=== PATIENT | male | born 1970 | race Hispanic/Latino ===

== ENCOUNTER 2017-06-20 08:51 | Inpatient (IN) | payer OTHER ==
--- NOTE | 2017-06-20 09:36 | ED PDOC ---
Arrival/HPI - General Historian: Patient, EMS <Swapna Galeana - Last Filed: 06/20/17 18:01> <Sherri Zaldivar - Last Filed: 06/20/17 18:54> <Lico Tyler - Last Filed: 06/21/17 04:22> - General Chief Complaint: Alcohol Ingestion Time Seen by Provider: 06/20/17 09:09 - History of Present Illness Narrative History of Present Illness (Text): 06/20/17 09:32 pt brought in by ambulance after being found in an alleyway with a bottle of alcohol at his side. pt alert, but intoxicated. smell of alcohol on breath. admits to drinking alcohol. denies any complaints. (Swapna Galeana) Past Medical History - Provider Review Nursing Documentation Reviewed: Yes - Travel History Have you recently traveled outside [place] w/in the past 3 mons?: No - Tetanus Immunization Tetanus Immunization: Unknown - Psychiatric Hx Substance Use: No (pt denies) <Swapna Galeana - Last Filed: 06/20/17 18:01> Family/Social History - Physician Review Nursing Documentation Reviewed: Yes Family/Social History: Unknown Family HX Smoking Status: Unknown If Ever Smoked Hx Alcohol Use: Yes Hx Substance Use: No (pt denies) <Swapna Galeana - Last Filed: 06/20/17 18:01> Allergies/Home Meds <Swapna Galeana - Last Filed: 06/20/17 18:01> <Sherri Zaldivar - Last Filed: 06/20/17 18:54> <Lico Tyler - Last Filed: 06/21/17 04:22> Allergies/Adverse Reactions: Allergies No Known Allergies Allergy (Verified 02/06/15 21:09) Home Medications: Home Meds Medication Instructions Recorded Confirmed Unobtainable 06/20/17 06/20/17 Review of Systems - Review of Systems Systems not reviewed;Unavailable: Intoxicated Respiratory: absent: SOB Cardiovascular: absent: Chest Pain Gastrointestinal: absent: Abdominal Pain Musculoskeletal: absent: Arthralgias Neurological: absent: Headache <Swapna Galeana - Last Filed: 06/20/17 18:01> Physical Exam Vital Signs Reviewed: Yes Temperature: Afebrile Blood Pressure: Hypertensive Pulse: Tachycardic Respiratory Rate: Normal Appearance: Positive for: Well-Appearing, Non-Toxic, Comfortable Pain Distress: None Mental Status: Positive for: other (alert, intoxicated) Finger Stick Blood Glucose: 101 - Systems Exam Head: Present: Atraumatic Pupils: Present: PERRL Conjunctiva: Present: Injected (bilateral conjunctival injection) Mouth: Present: Moist Mucous Membranes Neck: Present: Normal Range of Motion Respiratory/Chest: Present: Clear to Auscultation Cardiovascular: Present: Tachycardic Abdomen: No: Tenderness Back: Present: Normal Inspection Upper Extremity: Present: Normal Inspection, Normal ROM Lower Extremity: Present: Normal ROM, Other (abrasion, left knee). No: Tenderness Skin: Present: Warm, Dry Psychiatric: Present: Alert, Intoxicated <Swapna Galeana - Last Filed: 06/20/17 18:01> Medical Decision Making <Swapna Galeana - Last Filed: 06/20/17 18:01> <Sherri Zaldivar - Last Filed: 06/20/17 18:54> <Lico Tyler - Last Filed: 06/21/17 04:22> ED Course and Treatment: 06/20/17 09:34 male hudson found in alleyway with bottle of alcohol at his side. admits to drinking alcohol. alert but intoxicated. will observe patient for sobriety. Patient is nontoxic well-appearing in no distress vital signs are stable. CBC WNL CMP WNL Tylenol WNL Salicylate WNL Alcohol level 527 Urine drug screen pending UA; pending cxr: wnl ekg: sinus tachycardia at 102 b/m no st elevations. Head CT:FINDINGS: HEMORRHAGE: No intracranial hemorrhage. BRAIN: No mass effect or edema. No atrophy or chronic microvascular ischemic changes. VENTRICLES: Unremarkable. No hydrocephalus. CALVARIUM: Unremarkable. PARANASAL SINUSES: Unremarkable as visualized. No significant inflammatory changes. MASTOID AIR CELLS: There is some bony sclerosis and opacification of air cells in the inferior right mastoid consistent with mastoiditis OTHER FINDINGS: None. IMPRESSION: No acute findings 06/20/17 18:02 case signed out to dr. zaldivar; pending sobriety impression; alcohol intoxication (Swapna Galeana) - Lab Interpretations Lab Results: 06/20/17 10:00 06/20/17 10:00 Lab Results 06/20/17 10:00: WBC 5.6, RBC 5.71, Hgb 17.4, Hct 46.8, MCV 82.0, MCH 30.5, MCHC 37.2 H, RDW 13.2, Plt Count 95 L, MPV 9.0, Gran % 46.4 L, Lymph % (Auto) 48.4 H , [place] % (Auto) 4.8, Eos % (Auto) 0.2 L, Baso % (Auto) 0.2, Gran # 2.60, Lymph # 2.7, [place] # 0.3, Eos # 0.0, Baso # 0.01 06/20/17 10:00: Alcohol, Quantitative 527 H* 06/20/17 10:00: Salicylates < 1 L, Acetaminophen < 10.0 L 06/20/17 10:00: Sodium 144, Potassium 4.1, Chloride 97 L, Carbon Dioxide 23, Anion Gap 28 H, BUN 15, Creatinine 0.6, Est GFR ( Amer) > 60, Est GFR ( Non-Af Amer) > 60, Random Glucose 99, Calcium 8.3 L, Total Bilirubin 1.1, AST 551 H, ALT 441 H, Alkaline Phosphatase 73, Total Protein 7.6, Albumin 4.8, Globulin 2.8, Albumin/Globulin Ratio 1.7 06/20/17 09:08: POC Glucose (mg/dL) 101 - RAD Interpretation Radiology Orders: 06/20/17 09:10 HEAD W/O CONTRAST [CT] Stat 06/20/17 09:36 CHEST ONE VIEW [RAD] Stat - Medication Orders Current Medication Orders: Folic Acid 1 mg/ Thiamine HCl 100 mg/ Multivitamins/Vitamin C 10 ml/ Dextrose 1 ,011.2 mls @ 100 mls/hr IV .Q10H7M [facility] Calcium Gluconate 1,000 mg/ (Sodium Chloride) 110 mls @ 110 mls/hr IVPB ONCE ONE Stop: 06/21/17 05:03 Discontinued Medications Chlordiazepoxide (Librium) 25 mg PO STAT STA PRN Reason: Protocol Stop: 06/20/17 21:32 Last Admin: 06/20/17 21:45 Dose: 25 mg Chlordiazepoxide (Librium) 25 mg PO STAT STA PRN Reason: Protocol Stop: 06/21/17 02:54 Last Admin: 06/21/17 03:26 Dose: Lorazepam (Ativan) 2 mg IVP ONCE ONE PRN Reason: Protocol Stop: 06/21/17 03:17 Last Admin: 06/21/17 03:33 Dose: 2 mg ED OBSERVATION Date of observation admission: 06/20/17 Time of observation admission: 09:10 <Swapna Galeana - Last Filed: 06/20/17 18:01> <Sherri Zaldivar - Last Filed: 06/20/17 18:54> <Lico Tyler - Last Filed: 06/21/17 04:22> - Observation admission statement Patient is being placed in observation because:: alcohol intoxication (Swapna Galeana) - Goals of Observation Goals of observation are:: sobriety (Swapna Galeana) - Progress Note Progress Note: 06/20/17 11:15 pt sleeping in er; HR 89. no distress. 06/20/17 13:23 pt alert; no distress. stable vitals. resting comfortably. 06/20/17 15:27 pt sleeping in ER. no distress.stable vitals. 06/20/17 17:30 pt with stable vitals; no distress; drinking water in er. (Swapna Galeana) 06/20/17 18:29 Patient awake resting comfortably in his bed. 06/20/17 19:[address] Tyler to reevaluate when sober. (Sherri Zaldivar) 06/20/17 19:00 Case endorsed to me by Dr. Zaldivar, pending sobriety. 06/20/17 21:00 Pt resting comfortably, no new complaints. 06/20/17 23:00 Pt sleeping currently, in no acute distress. 06/21/17 01:00 Pt resting comfortably, no new complaints. 06/21/17 02:53 RN reports pt is now experiencing shaking. Will order Librium and banana bag. 06/21/17 03:17 Case discussed with medical planner educational fundraising director, who is aware and agrees with plan. Case discussed with Dr. Oglesby, who is aware and agrees with plan. Pt will be admitted to Telemetry observation for alcohol withdrawal under the hospitalist service. (Lico Tyler) Disposition/Present on Arrival - Present on Arrival Any Indicators Present on Arrival: No History of DVT/PE: No History of Uncontrolled Diabetes: No Urinary Catheter: No History of Decub. Ulcer: No History Surgical Site Infection Following: None <Swapna Galeana - Last Filed: 06/20/17 18:01> - Disposition Have Diagnosis and Disposition been Completed?: No Disposition Time: 19:00 <Sherri Zaldivar - Last Filed: 06/20/17 18:54> <Lico Tyler - Last Filed: 06/21/17 04:22> - Disposition Diagnosis: Alcohol abuse Patient Problems: Current Active Problems Problem Status Onset Alcohol abuse Acute Condition: FAIR
[2017-06-20 10:13] LABS: ADD MANUAL DIFF? NO
[2017-06-20 10:22] LABS: BASO # 0.01 K/mm3 (0.0-2.0); BASO % 0.2 % (0.0-3.0); EOS % 0.2 % (1.5-5.0); GRAN % 46.4 % (50.0-68.0); HEMATOCRIT 46.8 % (42.0-52.0); LYMPH # 2.7 (1.2-3.4); LYMPH % 48.4 % (22.0-35.0); MEAN CORPUSCULAR HEMOGLOBIN 30.5 pg (25.0-35.0); MEAN CORPUSCULAR HGB CONC 37.2 g/dl (31.0-37.0); MONO # 0.3 (0.1-0.6); MONO % 4.8 % (1.0-6.0); PLATELET COUNT 95 10^3/uL (120.0-450.0); RED CELL DISTRIBUTION WIDTH 13.2 % (11.5-14.5); WHITE BLOOD COUNT 5.6 10^3/ul (4.5-11.0)
[2017-06-20 10:33] LABS: ALB/GLOB RATIO 1.7 (1.1-1.8); ALKALINE PHOSPHATASE 73 U/L (38-133); ALT/SGPT 441 U/L (7-56); AST/SGOT 551 U/L (15-59); BILIRUBIN,TOTAL 1.1 mg/dL (0.2-1.3); BLOOD UREA NITROGEN 15 mg/dL (7-21); CALCIUM 8.3 mg/dL (8.4-10.5); CARBON DIOXIDE 23 mmol/L (21-33); CHLORIDE 97 mmol/L (98-107); GFR AFRICAN-AMERICAN > 60; GLUCOSE,RANDOM 99 mg/dL (70-110); POTASSIUM 4.1 mmol/L (3.6-5.0); SODIUM 144 mmol/L (132-148); TOTAL PROTEIN 7.6 g/dL (5.8-8.3)
--- NOTE | 2017-06-20 12:14 | CT ---
PROCEDURE: CT HEAD WITHOUT CONTRAST. HISTORY: AMS/etoh use COMPARISON: None available. TECHNIQUE: Axial computed tomography images were obtained through the head/brain without intravenous contrast. Radiation dose: Total exam DLP = 769 mGy-cm. This CT exam was performed using one or more of the following dose reduction techniques: Automated exposure control, adjustment of the mA and/or kV according to patient size, and/or use of iterative reconstruction technique. FINDINGS: HEMORRHAGE: No intracranial hemorrhage. BRAIN: No mass effect or edema. No atrophy or chronic microvascular ischemic changes. VENTRICLES: Unremarkable. No hydrocephalus. CALVARIUM: Unremarkable. PARANASAL SINUSES: Unremarkable as visualized. No significant inflammatory changes. MASTOID AIR CELLS: There is some bony sclerosis and opacification of air cells in the inferior right mastoid consistent with mastoiditis OTHER FINDINGS: None. IMPRESSION: No acute findings
--- NOTE | 2017-06-20 12:19 | RAD ---
PROCEDURE: CHEST RADIOGRAPH, 1 VIEW HISTORY: AMS COMPARISON: None available. FINDINGS: LUNGS: Clear. PLEURA: No pneumothorax or pleural fluid seen. CARDIOVASCULAR: Normal. OSSEOUS STRUCTURES: No significant abnormalities. VISUALIZED UPPER ABDOMEN: Normal. OTHER FINDINGS: None. IMPRESSION: No active disease.
--- NOTE | 2017-06-20 13:11 | CARD ---
APPROVED REPORT EKG Measurement Heart [id number] <Conclusion> Poor data quality, interpretation may be adversely affected Sinus tachycardia Otherwise normal ECG
[2017-06-21] MEDS ORDERED: Thiamine 100 mg/ml Inj IV ONE (03:34)
--- NOTE | 2017-06-21 04:01 | CP.PCM.HP ---
<Krishna White - Last Filed: 06/21/17 04:06> History of Present Illness - History of Present Illness History of Present Illness: CC: ETOH intoxication HPI: Patient is a 47 year old male with PMH significant for ETOH abuse who is brought to the ED via EMS for alcohol intoxication after being found in an alleyway with a bottle of alcohol at his side per ED documentation. Patient reports drinking for 7 days straight, consuming a mixture of vodka and beer every day. Patient reports having a long history of alcohol intoxication episodes requiring medical attention. Patient speech noted to be slightly slurred and smells of ETOH. Patient is alert to place, year, person. Patient denies auditory/visual hallucinations. Patient reports tremors and elevated heart rate. Denies chest pain, shob, abdominal pain, fever, chills, nausea, vomiting. 12 point ROS negative except for mentioned in HPI. PMH: ETOH abuse PSH: Jaw surgery FMH: Non-contributory SocHx: Tob: Denies, ETOH: Heavy drinking, ID: denies Meds: None Allergies: None PMD: None Present on Admission - Present on Admission Any Indicators Present on Admission: No History of DVT/PE: No History of Uncontrolled Diabetes: No Urinary Catheter: No Decubitus Ulcer Present: No Review of Systems - Review of Systems All systems: reviewed and no additional remarkable complaints except Review of Systems: as mentioned in HPI Past Patient History - Infectious Disease Hx of Infectious Diseases: None - Tetanus Immunizations Tetanus Immunization: Unknown - Past Medical History & Family History Past Medical History?: No - Past Social History Smoking Status: Never Smoked Alcohol: > 2 Drinks/Day Drugs: Denies - CARDIAC Hx Cardiac Disorders: No - PULMONARY Hx Respiratory Disorders: No - NEUROLOGICAL Hx Neurological Disorder: No - HEENT Hx HEENT Problems: No - RENAL Hx Chronic Kidney Disease: No - ENDOCRINE/METABOLIC Hx Endocrine Disorders: No - HEMATOLOGICAL/ONCOLOGICAL Hx Blood Disorders: No - INTEGUMENTARY Hx Dermatological Problems: No - MUSCULOSKELETAL/RHEUMATOLOGICAL Hx Falls: Yes - GASTROINTESTINAL Hx Gastrointestinal Disorders: No - GENITOURINARY/GYNECOLOGICAL Hx Genitourinary Disorders: No - PSYCHIATRIC Hx Substance Use: No (pt denies) - SURGICAL HISTORY Hx Surgeries: (unable to obtain) - ANESTHESIA Hx Anesthesia: No Hx Anesthesia Reactions: No Hx Malignant Hyperthermia: No Meds Allergies/Adverse Reactions: Allergies Allergy/AdvReac Type Severity Reaction Status Date / Time No Known Allergies Allergy Verified 02/06/15 21:09 Physical Exam - Head Exam Head Exam: ATRAUMATIC, NORMAL INSPECTION, NORMOCEPHALIC - Eye Exam Eye Exam: Conjunctival injection, EOMI, PERRL - ENT Exam ENT Exam: Mucous Membranes Dry - Neck Exam Neck exam: Positive for: Full Rom, Normal Inspection. Negative for: Tenderness - Respiratory Exam Respiratory Exam: Clear to Auscultation Bilateral, NORMAL BREATHING PATTERN - Cardiovascular Exam Cardiovascular Exam: Tachycardia, REGULAR RHYTHM, +S1, +S2 - GI/Abdominal Exam GI & Abdominal Exam: Normal Bowel Sounds, Soft. absent: Tenderness - Extremities Exam Extremities exam: Positive for: full ROM, normal inspection, pedal pulses present. Negative for: pedal edema - Back Exam Back exam: FULL ROM, NORMAL INSPECTION - Neurological Exam Neurological exam: Alert, CN II-XII Intact, Oriented x3, Reflexes Normal Additional comments: Motor and Sensory grossly intact - Psychiatric Exam Psychiatric exam: Normal Affect, Normal Mood - Skin Skin Exam: Dry, Intact, Normal Color, Warm Results - Vital Signs Recent Vital Signs: Last Vital Signs Temp 98.0 F 06/20/17 13:23 Pulse 80 06/20/17 21:49 Resp 18 06/20/17 21:49 BP 150/90 06/20/17 21:49 Pulse Ox 100 06/20/17 21:49 - Labs Result Diagrams: 06/20/17 10:00 06/20/17 10:00 Labs: Laboratory Results - last 24 hr 06/20/17 06/20/17 06/20/17 10:00 10:00 10:00 WBC RBC Hgb Hct MCV MCH MCHC RDW Plt Count MPV Gran % Lymph % (Auto) [place] % (Auto) Eos % (Auto) Baso % (Auto) Gran # Lymph # [place] # Eos # Baso # Sodium 144 Potassium 4.1 Chloride 97 L Carbon Dioxide 23 Anion Gap 28 H BUN 15 Creatinine 0.6 Est GFR ( Amer) > 60 Est GFR (Non-Af Amer) > 60 Random Glucose 99 Calcium 8.3 L Total Bilirubin 1.1 AST 551 H ALT 441 H Alkaline Phosphatase 73 Total Protein 7.6 Albumin 4.8 Globulin 2.8 Albumin/Globulin Ratio 1.7 Salicylates < 1 L Acetaminophen < 10.0 L Alcohol, Quantitative 527 H* 06/20/17 10:00 WBC 5.6 RBC 5.71 Hgb 17.4 Hct 46.8 MCV 82.0 MCH 30.5 MCHC 37.2 H RDW 13.2 Plt Count 95 L MPV 9.0 Gran % 46.4 L Lymph % (Auto) 48.4 H [place] % (Auto) 4.8 Eos % (Auto) 0.2 L Baso % (Auto) 0.2 Gran # 2.60 Lymph # 2.7 [place] # 0.3 Eos # 0.0 Baso # 0.01 Sodium Potassium Chloride Carbon Dioxide Anion Gap BUN Creatinine Est GFR ( Amer) Est GFR (Non-Af Amer) Random Glucose Calcium Total Bilirubin AST ALT Alkaline Phosphatase Total Protein Albumin Globulin Albumin/Globulin Ratio Salicylates Acetaminophen Alcohol, Quantitative Assessment & Plan - Assessment and Plan (Free Text) Assessment: Patient is a 47 year old male with PMH significant for ETOH abuse who is brought to the ED via EMS for alcohol intoxication after being found in an alleyway with a bottle of alcohol at his side per ED documentation. Patient is being evaluated and treated for alcohol intoxication. Plan: 1. Alcohol Intoxication - Hx of previous episodes of alcohol intoxication - Chronic ETOH abuse - CIWA protocol - High Fall Risk precautions - Seizure precautions - Check Mg, Phos in AM - Ativan IV 2mg Q3H aroldo and Ativan IV 2mg Q2H prn - MV - Banana Bag IV - Librium 2. Hypocalcemia - Calcium low, Albumin with in normal range - EKG NSR, tachycardia, No narrow of QRS or prolonged QT - Replace calcium - Continue to monitor 3. DVT/GI ppx - Protonix - SCDs Case discussed and reviewed with Dr. Oglesby - Date & Time Date: 06/21/17 Time: 04:15 <Shannan Oglesby - Last Filed: 06/21/17 04:59> Results - Vital Signs Recent Vital Signs: Last Vital Signs Temp 98.0 F 06/21/17 03:00 Pulse 102 H 06/21/17 03:00 Resp 16 06/21/17 03:00 BP 166/105 H 06/21/17 03:00 Pulse Ox 100 06/21/17 03:00 - Labs Result Diagrams: 06/20/17 10:00 06/20/17 10:00 Attending/Attestation - Attestation I have personally seen and examined this patient.: Yes I have fully participated in the care of the patient.: Yes I have reviewed all pertinent clinical information: Yes Notes (Text): 06/21/17 04:58 Patient was seen when he was in bed # 2 in the ER . Agree with history, physical examination , assessment and plan.
[2017-06-21 05:12] LABS: ADD MANUAL DIFF? NO
[2017-06-21 05:24] LABS: ALB/GLOB RATIO 1.6 (1.1-1.8); ALKALINE PHOSPHATASE 55 U/L (38-133); ALT/SGPT 475 U/L (7-56); BASO # 0.01 K/mm3 (0.0-2.0); BASO % 0.2 % (0.0-3.0); BILIRUBIN,TOTAL 1.2 mg/dL (0.2-1.3); BLOOD UREA NITROGEN 18 mg/dL (7-21); CALCIUM 8.4 mg/dL (8.4-10.5); CARBON DIOXIDE 23 mmol/L (21-33); CHLORIDE 93 mmol/L (95-110); GFR AFRICAN-AMERICAN > 60; GLUCOSE,RANDOM 135 mg/dL (70-110); GRAN # 4.43 (1.4-6.5); GRAN % 72.4 % (50.0-68.0); HEMATOCRIT 39.7 % (42.0-52.0); LYMPH # 1.2 (1.2-3.4); LYMPH % 19.6 % (22.0-35.0); MAGNESIUM 1.5 mg/dL (1.7-2.2); MEAN CELL VOLUME 82.9 fl (80.0-105.0); MEAN CORPUSCULAR HEMOGLOBIN 30.1 pg (25.0-35.0); MEAN CORPUSCULAR HGB CONC 36.3 g/dl (31.0-37.0); MEAN PLATELET VOLUME 9.2 fl (7.0-11.0); MONO # 0.5 (0.1-0.6); MONO % 7.8 % (1.0-6.0); PHOSPHOROUS 3.4 mg/dL (2.5-4.5); PLATELET COUNT 90 10^3/uL (120.0-450.0); POTASSIUM 4.3 mmol/L (3.6-5.0); RED CELL DISTRIBUTION WIDTH 13.2 % (11.5-14.5); SODIUM 134 mmol/L (132-148); TOTAL PROTEIN 6.4 g/dL (5.8-8.3); WHITE BLOOD COUNT 6.1 10^3/ul (4.5-11.0)
[2017-06-21 05:39] LABS: AST/SGOT 576 U/L (15-59)
[2017-06-21] MEDS: Folic Acid 1 MG, Thiamine 100 MG, Multivitamin (MVI) 10 ML in Dextrose 5% In Water 1,00... IV SCH ×3 (06:40→18:52)
[2017-06-21] MEDS ORDERED: Magnesium Sulfate 2 GM in Sodium Chloride 0.9% 100 ML IVPB ONE (07:55)
[2017-06-22] MEDS: Folic Acid 1 MG, Thiamine 100 MG, Multivitamin (MVI) 10 ML in Dextrose 5% In Water 1,00... IV SCH ×2 (05:42→17:22)
[2017-06-22 05:47] LABS: ADD MANUAL DIFF? NO
[2017-06-22 06:03] LABS: BASO # 0.01 K/mm3 (0.0-2.0); BASO % 0.2 % (0.0-3.0); EOS % 0.6 % (1.5-5.0); GRAN # 3.16 (1.4-6.5); HEMATOCRIT 42.5 % (42.0-52.0); LYMPH # 1.4 (1.2-3.4); LYMPH % 28.1 % (22.0-35.0); MEAN CELL VOLUME 84.5 fl (80.0-105.0); MEAN CORPUSCULAR HGB CONC 35.5 g/dl (31.0-37.0); MEAN PLATELET VOLUME 10.1 fl (7.0-11.0); MONO # 0.4 (0.1-0.6); MONO % 7.1 % (1.0-6.0); PLATELET COUNT 68 10^3/uL (120.0-450.0); RED CELL DISTRIBUTION WIDTH 13.3 % (11.5-14.5); WHITE BLOOD COUNT 4.9 10^3/ul (4.5-11.0)
[2017-06-22 06:44] LABS: ALB/GLOB RATIO 1.7 (1.1-1.8); ALKALINE PHOSPHATASE 66 U/L (38-133); ALT/SGPT 454 U/L (7-56); AST/SGOT 425 U/L (15-59); BILIRUBIN,TOTAL 1.6 mg/dL (0.2-1.3); BLOOD UREA NITROGEN 15 mg/dL (7-21); CALCIUM 9.2 mg/dL (8.4-10.5); CARBON DIOXIDE 29 mmol/L (21-33); CHLORIDE 90 mmol/L (95-110); GFR AFRICAN-AMERICAN > 60; GLUCOSE,RANDOM 118 mg/dL (70-110); MAGNESIUM 2.2 mg/dL (1.7-2.2); PHOSPHOROUS 3.3 mg/dL (2.5-4.5); POTASSIUM 3.9 mmol/L (3.6-5.0); SODIUM 133 mmol/L (132-148); TOTAL PROTEIN 7.3 g/dL (5.8-8.3)
--- NOTE | 2017-06-22 12:34 | CP.PCM.PN ---
<RUPINDER TODD - Last Filed: 06/22/17 12:18> Subjective - Date & Time of Evaluation Date of Evaluation: 06/22/17 Time of Evaluation: 12:34 - Subjective Subjective: Medicine Progress Note: Pt seen and examined at bedside. Pt denies any acute overnight events. Pt has been OOB to bathroom and reports he walks without difficulty. Pt states that he understands that he needs to quit alcohol use and attend rehab. Pt denies any tremors, chills, fevers, CP, SOB, n/v/d, abdominal pain, or vertigo. Objective - Vital Signs/Intake and Output Vital Signs (last 24 hours): Temp Pulse Resp BP Pulse Ox 98.2 F 97 H 20 134/90 99 06/22/17 12:00 06/22/17 12:00 06/22/17 12:00 06/22/17 12:00 06/22/17 09:30 Intake and Output: 06/22/17 06/22/17 06:59 18:59 Intake Total 1960 Output Total 425 Balance 1535 - Medications Medications: Current Medications Folic Acid (Folic Acid) 1 mg PO DAILY [facility] Folic Acid 1 mg/ Thiamine HCl 100 mg/ Multivitamins/Vitamin C 10 ml/ Dextrose 1 ,011.2 mls @ 100 mls/hr IV .Q10H7M [facility] Last Admin: 06/22/17 05:42 Dose: 100 mls/hr Lorazepam (Ativan) 2 mg IVP Q2H PRN; Protocol PRN Reason: Agitation Lorazepam (Ativan) 2 mg IVP Q6H [facility] PRN Reason: Protocol Last Admin: 06/22/17 12:04 Dose: Not Given Multivitamins/Minerals (Therapeutic-M Tab) 1 tab PO 0800 [facility] Pantoprazole Sodium (Protonix Inj) 40 mg IVP DAILY [facility] Last Admin: 06/22/17 10:08 Dose: 40 mg Thiamine HCl (Vitamin B1 Tab) 100 mg PO DAILY [facility] - Labs Labs: 06/22/17 05:30 06/22/17 05:30 - Constitutional Appears: No Acute Distress - Head Exam Head Exam: ATRAUMATIC, NORMOCEPHALIC - Eye Exam Eye Exam: EOMI, PERRL. absent: Scleral icterus Pupil Exam: PERRL - ENT Exam ENT Exam: Mucous Membranes Moist - Neck Exam Neck Exam: Full ROM. absent: Lymphadenopathy, Tenderness, Thyromegaly - Respiratory Exam Respiratory Exam: Clear to Ausculation Bilateral. absent: Rales, Rhonchi, Wheezes - Cardiovascular Exam Cardiovascular Exam: RRR. absent: Gallop, Rubs, Murmur - GI/Abdominal Exam GI & Abdominal Exam: Soft. absent: Distended, Rigid, Tenderness, Rebound - Extremities Exam Extremities Exam: Normal Inspection - Back Exam Back Exam: NORMAL INSPECTION - Neurological Exam Neurological Exam: Alert, Awake, Oriented x3 - Psychiatric Exam Psychiatric exam: Normal Affect, Normal Mood - Skin Skin Exam: Dry, Intact, Normal Color, Warm Assessment and Plan - Assessment and Plan (Free Text) Assessment: Patient is a 47 year old male with PMH significant for ETOH abuse admitted for evaluation and treatment for alcohol intoxication. Plan: 1. Alcohol Intoxication, risk for withdrawal - Pt clinically improved, taper to Ativan 2 mg Q6H [facility] - CIWA score: 8 - Ativan IV 2mg Q2H prn - Liver enzymes down trending, AST/ALT 425/454 - Start PO multivitamin, folate, thiamine - F/u hep panel, drug screen - High Fall Risk precautions - Seizure precautions 2. Alcohol abuse - Consulted social work for possible rehab locations - Per social work, pt not ready or interested at this time for program at [facility] - Explained risks of of alcohol consumption and advised cessation 3. Hypocalcemia, resolved - Ca 9.2 - Continue to monitor - Replete as needed 4. DVT/GI ppx - Protonix - SCDs Pt discussed and reviewed with Dr. Olivier. <Lokesh Olivier - Last Filed: 06/22/17 13:27> Objective - Vital Signs/Intake and Output Vital Signs (last 24 hours): Temp Pulse Resp BP Pulse Ox 98.2 F 97 H 20 134/90 99 06/22/17 12:00 06/22/17 12:00 06/22/17 12:00 06/22/17 12:00 06/22/17 09:30 Intake and Output: 06/22/17 06/22/17 06:59 18:59 Intake Total 1960 Output Total 425 Balance 1535 - Medications Medications: Current Medications Folic Acid (Folic Acid) 1 mg PO DAILY [facility] Folic Acid 1 mg/ Thiamine HCl 100 mg/ Multivitamins/Vitamin C 10 ml/ Dextrose 1 ,011.2 mls @ 100 mls/hr IV .Q10H7M [facility] Last Admin: 06/22/17 05:42 Dose: 100 mls/hr Lorazepam (Ativan) 2 mg IVP Q2H PRN; Protocol PRN Reason: Agitation Lorazepam (Ativan) 2 mg IVP Q6H [facility] PRN Reason: Protocol Last Admin: 06/22/17 12:04 Dose: Not Given Multivitamins/Minerals (Therapeutic-M Tab) 1 tab PO 0800 [facility] Pantoprazole Sodium (Protonix Inj) 40 mg IVP DAILY [facility] Last Admin: 06/22/17 10:08 Dose: 40 mg Thiamine HCl (Vitamin B1 Tab) 100 mg PO DAILY [facility] - Labs Labs: 06/22/17 05:30 06/22/17 05:30 Attending/Attestation - Attestation I have personally seen and examined this patient.: Yes I have fully participated in the care of the patient.: Yes I have reviewed all pertinent clinical information, including history, physical exam and plan: Yes Notes (Text): 06/22/17 13:24 47 year old male with past medical history of alcohol abuse who presented with alcohol intoxication; admitted for alcohol withdrawal. He is on ativan gabriele/prn for withdrawal symptoms. Will taper today. Continue with po multivitamin, folic acid and thiamine. He was counselled on alcohol abstinence. Elevated LFTs likely secondary to chronic ETOH abuse. Will continue to trend. Hepatitis panel is pending. Lokesh Olivier MD Hospitalist.
[2017-06-23] MEDS: Folic Acid 1 MG, Thiamine 100 MG, Multivitamin (MVI) 10 ML in Dextrose 5% In Water 1,00... IV SCH ×2 (03:22→03:41)
[2017-06-23] MEDS: Pantoprazole 40 mg EC Tab PO SCH (06:18)
[2017-06-23 07:30] LABS: ALB/GLOB RATIO 1.4 (1.1-1.8); ALKALINE PHOSPHATASE 57 U/L (38-133); ALT/SGPT 393 U/L (7-56); AST/SGOT 308 U/L (15-59); BILIRUBIN,TOTAL 1.2 mg/dL (0.2-1.3); BLOOD UREA NITROGEN 13 mg/dL (7-21); CALCIUM 9.1 mg/dL (8.4-10.5); CARBON DIOXIDE 25 mmol/L (21-33); CHLORIDE 93 mmol/L (95-110); GFR AFRICAN-AMERICAN > 60; GLUCOSE,RANDOM 98 mg/dL (70-110); POTASSIUM 3.8 mmol/L (3.6-5.0); SODIUM 130 mmol/L (132-148); TOTAL PROTEIN 6.9 g/dL (5.8-8.3)
[2017-06-23 07:35] LABS: MEAN CELL VOLUME 83.7 fl (80.0-105.0); MEAN CORPUSCULAR HEMOGLOBIN 29.2 pg (25.0-35.0); MEAN CORPUSCULAR HGB CONC 34.9 g/dl (31.0-37.0); MEAN PLATELET VOLUME 10.3 fl (7.0-11.0); RED CELL DISTRIBUTION WIDTH 13.1 % (11.5-14.5); WHITE BLOOD COUNT 5.2 10^3/ul (4.5-11.0)
[2017-06-23] MEDS: Multivitamin With Minerals Tab PO SCH (09:51)
--- NOTE | 2017-06-23 16:25 | CP.PCM.PN ---
<RUPINDER TODD - Last Filed: 06/23/17 16:17> Subjective - Date & Time of Evaluation Date of Evaluation: 06/23/17 Time of Evaluation: 16:17 - Subjective Subjective: Medicine Progress Note: Pt seen and examined at bedside. Pt denies any acute overnight events. Pt states that he is better and is ready to go home. Pt denies CP, SOB, n/v/d, chills, fevers, abdominal pain, JERONIMO, tremors, vertigo, or numbness. Objective - Vital Signs/Intake and Output Vital Signs (last 24 hours): Temp Pulse Resp BP Pulse Ox 98 F 96 H 18 134/89 96 06/23/17 12:00 06/23/17 14:00 06/23/17 12:00 06/23/17 12:00 06/23/17 06:00 Intake and Output: 06/23/17 06/23/17 06:59 18:59 Intake Total 1460 300 Output Total 2000 300 Balance -540 0 - Medications Medications: Current Medications Folic Acid (Folic Acid) 1 mg PO DAILY [facility] Last Admin: 06/23/17 09:48 Dose: 1 mg Lorazepam (Ativan) 2 mg IVP Q2H PRN; Protocol PRN Reason: Agitation Lorazepam (Ativan) 2 mg PO Q6 [facility] PRN Reason: Protocol Last Admin: 06/23/17 14:56 Dose: Not Given Multivitamins/Minerals (Therapeutic-M Tab) 1 tab PO 0800 [facility] Last Admin: 06/23/17 09:51 Dose: 1 tab Pantoprazole Sodium (Protonix Ec Tab) 40 mg PO 0600 [facility] Last Admin: 06/23/17 06:18 Dose: Not Given Thiamine HCl (Vitamin B1 Tab) 100 mg PO DAILY [facility] Last Admin: 06/23/17 09:49 Dose: 100 mg - Labs Labs: 06/23/17 07:15 06/23/17 07:15 - Constitutional Appears: No Acute Distress - Head Exam Head Exam: ATRAUMATIC, NORMOCEPHALIC - Eye Exam Eye Exam: EOMI, PERRL - ENT Exam ENT Exam: Mucous Membranes Moist - Neck Exam Neck Exam: Full ROM. absent: Lymphadenopathy, Tenderness, Thyromegaly - Respiratory Exam Respiratory Exam: Clear to Ausculation Bilateral. absent: Rales, Rhonchi, Wheezes - Cardiovascular Exam Cardiovascular Exam: RRR, +S1, +S2. absent: Gallop, Rubs, Murmur - GI/Abdominal Exam GI & Abdominal Exam: Soft. absent: Distended, Guarding, Tenderness, Rebound - Extremities Exam Extremities Exam: Normal Inspection Additional comments: improved b/l UE tremor - Neurological Exam Neurological Exam: Abnormal Gait (unsteady), Awake, Oriented x3 - Psychiatric Exam Psychiatric exam: Normal Affect, Normal Mood - Skin Skin Exam: Dry, Intact, Normal Color, Warm Assessment and Plan - Assessment and Plan (Free Text) Assessment: Patient is a 47 year old male with PMH significant for ETOH abuse admitted for evaluation and treatment for alcohol intoxication. Plan: 1. Alcohol Intoxication, risk for withdrawal - Gait continues to be unsteady, high fall risk - Pt wishes to leave, but is not clinically ready to be d/c'd - No PRN ativan needed - Cont Ativan 2 mg Q6H aroldo - CIWA score: 3 - Ativan IV 2mg Q2H prn - Liver enzymes down trending, AST/ALT 308/393 - Cont PO multivitamin, folate, thiamine - Hep panel negative - F/u drug screen - Seizure precautions 2. Alcohol abuse - Consulted social work for possible rehab locations - Per social work, pt not ready or interested at this time for program at [facility] - Explained risks of of alcohol consumption and advised cessation 3. Hypocalcemia, resolved - Continue to monitor - Replete as needed 4. DVT/GI ppx - Protonix - SCDs Pt discussed and reviewed with Dr. Oilvier. <Lokesh Olivier - Last Filed: 06/23/17 17:04> Objective - Vital Signs/Intake and Output Vital Signs (last 24 hours): Temp Pulse Resp BP Pulse Ox 98 F 96 H 18 134/89 96 06/23/17 12:00 06/23/17 14:00 06/23/17 12:00 06/23/17 12:00 06/23/17 06:00 Intake and Output: 06/23/17 06/23/17 06:59 18:59 Intake Total 1460 300 Output Total 2000 300 Balance -540 0 - Medications Medications: Current Medications Folic Acid (Folic Acid) 1 mg PO DAILY [facility] Last Admin: 06/23/17 09:48 Dose: 1 mg Lorazepam (Ativan) 2 mg IVP Q2H PRN; Protocol PRN Reason: Agitation Lorazepam (Ativan) 2 mg PO Q6 [facility] PRN Reason: Protocol Last Admin: 06/23/17 14:56 Dose: Not Given Multivitamins/Minerals (Therapeutic-M Tab) 1 tab PO 0800 [facility] Last Admin: 06/23/17 09:51 Dose: 1 tab Pantoprazole Sodium (Protonix Ec Tab) 40 mg PO 0600 [facility] Last Admin: 06/23/17 06:18 Dose: Not Given Thiamine HCl (Vitamin B1 Tab) 100 mg PO DAILY [facility] Last Admin: 06/23/17 09:49 Dose: 100 mg - Labs Labs: 06/23/17 07:15 06/23/17 07:15 Attending/Attestation - Attestation I have personally seen and examined this patient.: Yes I have fully participated in the care of the patient.: Yes I have reviewed all pertinent clinical information, including history, physical exam and plan: Yes Notes (Text): 06/23/17 17:01 47 year old male with past medical history of alcohol abuse who presented with alcohol intoxication. He was admitted for alcohol withdrawal. He is on ativan, multivitamin, folic acid and thiamine. He was counselled on alcohol abstinence. Elevated LFTs likely secondary to chronic ETOH abuse. Will continue to trend. Hepatitis panel is negative. LFTs are improving. Today he expressed wishes to go home. However earlier this morning his gait was still unsteady. We explained to him it would be against medical advice to leave at this time. He asked that we call his , however the two numbers provided were unsuccessful. Will continue with current management. Lokesh Olivier MD Hospitalist.
[2017-06-24 01:21] VITALS: O2SAT 98
[2017-06-24] MEDS: Pantoprazole 40 mg EC Tab PO SCH (05:49)
[2017-06-24 07:40] LABS: HEMATOCRIT 41.2 % (42.0-52.0); MEAN CELL VOLUME 85.3 fl (80.0-105.0); MEAN CORPUSCULAR HEMOGLOBIN 29.2 pg (25.0-35.0); MEAN CORPUSCULAR HGB CONC 34.2 g/dl (31.0-37.0); MEAN PLATELET VOLUME 10.4 fl (7.0-11.0); RED CELL DISTRIBUTION WIDTH 13.1 % (11.5-14.5); WHITE BLOOD COUNT 4.4 10^3/ul (4.5-11.0)
[2017-06-24 08:02] LABS: ALB/GLOB RATIO 1.5 (1.1-1.8); ALKALINE PHOSPHATASE 53 U/L (38-133); ALT/SGPT 371 U/L (7-56); AST/SGOT 217 U/L (15-59); BILIRUBIN,TOTAL 0.7 mg/dL (0.2-1.3); BLOOD UREA NITROGEN 16 mg/dL (7-21); CALCIUM 9.4 mg/dL (8.4-10.5); CARBON DIOXIDE 27 mmol/L (21-33); CHLORIDE 96 mmol/L (98-107); GFR AFRICAN-AMERICAN > 60; GLUCOSE,RANDOM 105 mg/dL (70-110); SODIUM 133 mmol/L (132-148); TOTAL PROTEIN 6.7 g/dL (5.8-8.3)
[2017-06-24] MEDS: Multivitamin With Minerals Tab PO SCH (08:29)
--- NOTE | 2017-06-24 14:35 | CP.PCM.PN ---
<RUPINDER TODD - Last Filed: 06/24/17 14:32> Subjective - Date & Time of Evaluation Date of Evaluation: 06/24/17 Time of Evaluation: 14:32 - Subjective Subjective: Medicine Progress Note: Pt was seen and examined at bedside. Pt denies any acute overnight events. Pt states that he believes he's ready to go home. Pt denies CP, SOB, n/v/d, abdominal pain, fevers, chills, tremors, dysuria, or polyuria. Objective - Vital Signs/Intake and Output Vital Signs (last 24 hours): Temp Pulse Resp BP Pulse Ox 96.1 F L 76 18 144/97 H 98 06/24/17 12:00 06/24/17 14:00 06/24/17 12:00 06/24/17 12:00 06/24/17 06:00 Intake and Output: 06/24/17 06/24/17 06:59 18:59 Intake Total 1020 Output Total 400 Balance 620 - Medications Medications: Current Medications Folic Acid (Folic Acid) 1 mg PO DAILY [facility] Last Admin: 06/24/17 09:12 Dose: 1 mg Lorazepam (Ativan) 2 mg IVP Q2H PRN; Protocol PRN Reason: Agitation Lorazepam (Ativan) 1 mg PO Q6H [facility] Multivitamins/Minerals (Therapeutic-M Tab) 1 tab PO 0800 [facility] Last Admin: 06/24/17 08:29 Dose: 1 tab Pantoprazole Sodium (Protonix Ec Tab) 40 mg PO 0600 [facility] Last Admin: 06/24/17 05:49 Dose: 40 mg Thiamine HCl (Vitamin B1 Tab) 100 mg PO DAILY [facility] Last Admin: 06/24/17 09:12 Dose: 100 mg - Labs Labs: 06/24/17 07:30 06/24/17 07:30 - Constitutional Appears: No Acute Distress - Head Exam Head Exam: ATRAUMATIC, NORMOCEPHALIC - Eye Exam Eye Exam: EOMI, PERRL - ENT Exam ENT Exam: Mucous Membranes Moist - Neck Exam Neck Exam: Full ROM. absent: Lymphadenopathy, Tenderness, Thyromegaly - Respiratory Exam Respiratory Exam: Clear to Ausculation Bilateral. absent: Rales, Rhonchi, Wheezes - Cardiovascular Exam Cardiovascular Exam: RRR, +S1, +S2. absent: Diastolic murmur, Gallop, Rubs, Murmur - GI/Abdominal Exam GI & Abdominal Exam: Soft. absent: Distended, Guarding, Tenderness, Rebound - Extremities Exam Extremities Exam: Normal Inspection - Neurological Exam Neurological Exam: Alert, Awake, Oriented x3. absent: Normal Gait (gait unsteady) Additional comments: no UE tremor - Psychiatric Exam Psychiatric exam: Normal Affect, Normal Mood - Skin Skin Exam: Dry, Intact, Normal Color, Warm Assessment and Plan - Assessment and Plan (Free Text) Assessment: Patient is a 47 year old male with PMH significant for ETOH abuse admitted for evaluation and treatment for alcohol withdrawal. Plan: 1. Alcohol Intoxication, risk for withdrawal - Gait continues to be unsteady, high fall risk - Pt wishes to leave, but is not clinically ready to be d/c'd - CIWA score: 1 - Taper to Ativan 1 mg Q6H aroldo - Ativan IV 2mg Q2H prn, none required - Liver enzymes down trending, AST/ALT 217/371 - Cont PO multivitamin, folate, thiamine - Hep panel negative - F/u drug screen - Seizure, fall precautions 2. Alcohol abuse - Consulted social work for possible rehab locations - Per social work, pt not ready or interested at this time [facility] - Explained risks of of alcohol consumption and advised cessation 3. Hypocalcemia, resolved - Continue to monitor - Replete as needed 4. DVT/GI ppx - Protonix - SCDs Pt discussed and reviewed with Dr. Olivier. <Lokesh Olivier - Last Filed: 06/24/17 15:04> Objective - Vital Signs/Intake and Output Vital Signs (last 24 hours): Temp Pulse Resp BP Pulse Ox 96.1 F L 76 18 144/97 H 98 06/24/17 12:00 06/24/17 14:00 06/24/17 12:00 06/24/17 12:00 06/24/17 06:00 Intake and Output: 06/24/17 06/24/17 06:59 18:59 Intake Total 1020 Output Total 400 Balance 620 - Medications Medications: Current Medications Folic Acid (Folic Acid) 1 mg PO DAILY [facility] Last Admin: 06/24/17 09:12 Dose: 1 mg Lorazepam (Ativan) 2 mg IVP Q2H PRN; Protocol PRN Reason: Agitation Lorazepam (Ativan) 1 mg PO Q6H [facility] Multivitamins/Minerals (Therapeutic-M Tab) 1 tab PO 0800 [facility] Last Admin: 06/24/17 08:29 Dose: 1 tab Pantoprazole Sodium (Protonix Ec Tab) 40 mg PO 0600 [facility] Last Admin: 06/24/17 05:49 Dose: 40 mg Thiamine HCl (Vitamin B1 Tab) 100 mg PO DAILY [facility] Last Admin: 06/24/17 09:12 Dose: 100 mg - Labs Labs: 06/24/17 07:30 06/24/17 07:30 Attending/Attestation - Attestation I have personally seen and examined this patient.: Yes I have fully participated in the care of the patient.: Yes I have reviewed all pertinent clinical information, including history, physical exam and plan: Yes Notes (Text): 06/24/17 15:02 47 year old male with past medical history of alcohol abuse who presented with alcohol intoxication. He is on ativan taper for withdrawal symptoms which are improving. He is on multivitamin, folic acid and thiamine. He was counselled on alcohol abstinence. Elevated LFTs likely secondary to chronic ETOH abuse. Will continue to trend LFTs which are improving. Hepatitis panel is negative. Again he expresses wishes to be discharged home. However this morning his gait was still unsteady, though improving. PT evaluation is requested. Lokesh Olivier MD Hospitalist.
[2017-06-24 17:09] VITALS: BP 144/97; PULSE 76; RESP 18; TEMP 96.1
--- NOTE | 2017-06-24 17:40 | CP.PCM.DIS ---
<RUPINDER TODD - Last Filed: 06/24/17 17:26> Provider - Provider Date of Admission: 06/21/17 03:17 Attending physician: Lokesh Olivier MD Primary care physician: NO PRIMARY CARE PROVIDER Time Spent in preparation of Discharge (in minutes): 45 Hospital Course - Lab Results Lab Results: Most Recent Lab Values WBC 4.4 10^3/ul (4.5-11.0) L 06/24/17 07:30 RBC 4.83 10^6/uL (3.5-6.1) 06/24/17 07:30 Hgb 14.1 g/dL (14.0-18.0) 06/24/17 07:30 Hct 41.2 % (42.0-52.0) L 06/24/17 07:30 MCV 85.3 fl (80.0-105.0) 06/24/17 07:30 MCH 29.2 pg (25.0-35.0) 06/24/17 07:30 MCHC 34.2 g/dl (31.0-37.0) 06/24/17 07:30 RDW 13.1 % (11.5-14.5) 06/24/17 07:30 Plt Count 85 10^3/uL (120.0-450.0) L 06/24/17 07:30 MPV 10.4 fl (7.0-11.0) 06/24/17 07:30 Gran % 64.0 % (50.0-68.0) 06/22/17 05:30 Lymph % (Auto) 28.1 % (22.0-35.0) 06/22/17 05:30 Bertie % (Auto) 7.1 % (1.0-6.0) H 06/22/17 05:30 Eos % (Auto) 0.6 % (1.5-5.0) L 06/22/17 05:30 Baso % (Auto) 0.2 % (0.0-3.0) 06/22/17 05:30 Gran # 3.16 (1.4-6.5) 06/22/17 05:30 Lymph # 1.4 (1.2-3.4) 06/22/17 05:30 Bertie # 0.4 (0.1-0.6) 06/22/17 05:30 Eos # 0.0 (0.0-0.7) 06/22/17 05:30 Baso # 0.01 K/mm3 (0.0-2.0) 06/22/17 05:30 Sodium 133 mmol/L (132-148) 06/24/17 07:30 Potassium 4.0 mmol/L (3.6-5.0) 06/24/17 07:30 Chloride 96 mmol/L (98-107) L 06/24/17 07:30 Carbon Dioxide 27 mmol/L (21-33) 06/24/17 07:30 Anion Gap 14 (10-20) 06/24/17 07:30 BUN 16 mg/dL (7-21) 06/24/17 07:30 Creatinine 0.7 mg/dL (0.5-1.4) 06/24/17 07:30 Est GFR ( Amer) > 60 06/24/17 07:30 Est GFR (Non-Af Amer) > 60 06/24/17 07:30 POC Glucose (mg/dL) 143 mg/dL (65-110) H 06/21/17 03:24 Random Glucose 105 mg/dL (70-110) 06/24/17 07:30 Calcium 9.4 mg/dL (8.4-10.5) 06/24/17 07:30 Phosphorus 3.3 mg/dL (2.5-4.5) 06/22/17 05:30 Magnesium 2.2 mg/dL (1.7-2.2) 06/22/17 05:30 Total Bilirubin 0.7 mg/dL (0.2-1.3) 06/24/17 07:30 AST 217 U/L (15-59) H 06/24/17 07:30 ALT 371 U/L (7-56) H 06/24/17 07:30 Alkaline Phosphatase 53 U/L (38-133) 06/24/17 07:30 Total Protein 6.7 g/dL (5.8-8.3) 06/24/17 07:30 Albumin 4.0 g/dL (3.0-4.8) 06/24/17 07:30 Globulin 2.7 gm/dL 06/24/17 07:30 Albumin/Globulin Ratio 1.5 (1.1-1.8) 06/24/17 07:30 Salicylates < 1 mg/dL (2.0-20.0) L 06/20/17 10:00 Acetaminophen < 10.0 ug/ml (10.0-20.0) L 06/20/17 10:00 Alcohol, Quantitative 527 mg/dL (0-10) H* 06/20/17 10:00 Hepatitis A IgM Ab Negative (NEGATIVE) 06/22/17 05:30 Hep Bs Antigen Negative (NEGATIVE) 06/22/17 05:30 Hep B Core IgM Ab Negative (NEGATIVE) 06/22/17 05:30 Hepatitis C Antibody Negative (NEGATIVE) 06/22/17 05:30 - Hospital Course Hospital Course: Patient is a 47 year old male with PMH significant for ETOH abuse who is brought to the ED via EMS for alcohol intoxication after being found in an alleyway with a bottle of alcohol at his side per ED documentation. Patient reports drinking for 7 days straight, consuming a mixture of vodka and beer every day. Patient reports having a long history of alcohol intoxication episodes requiring medical attention. Patient speech noted to be slightly slurred and smells of ETOH. Patient is alert to place, year, person. Patient denies auditory/visual hallucinations. Patient reports tremors and elevated heart rate. Denies chest pain, shob, abdominal pain, fever, chills, nausea, vomiting. In the ED, labs and imaging were obtained. Labs significant for thrombocytopenia, elevated LFTs, and alcohol level of 527. EKG showed tachycardia, otherwise NSR. Head CT was negative. CXR was negative. Pt was admitted to evaluate and treat for alcohol intoxication and risk of withdrawal. Social work was consulted for possible rehab placement, however patient denied these services at the time. The patient was placed on ativan scheduled and prn. The scheduled ativan was tapered during his hospital course and he did not require PRN ativan. Pt showed signs improvement including improved CIWA scores, AOx3, and decreased UE tremors. Gait improved during hospital course, but was still unsteady this AM. PT was consulted to evaluate gait. Today, pt was seen and examined at bedside. Pt denies any acute overnight events. Pt states that he believes he's ready to go home. Pt denies CP, SOB, n/v/d, abdominal pain, fevers, chills, tremors, dysuria, or polyuria. Pt did not want to wait for official physical therapy evaluation before discharge. While patient was still on scheduled ativan, he showed improved gait from past days and had no tremors. Pt was counselled on the risks of alcohol consumption and advised cessation. Pt was informed on the benefits in staying and risks of leaving against medical advice including, but not limited to further morbidity and mortality. The patient understood and agreed to sign out AMA. Discharge Exam - Head Exam Head Exam: ATRAUMATIC, NORMOCEPHALIC - Eye Exam Eye Exam: EOMI, PERRL - ENT Exam ENT Exam: Mucous Membranes Dry - Neck Exam Neck exam: Full Rom - Respiratory Exam Respiratory Exam: Clear to PA & Lateral. absent: Rales, Rhonchi, Wheezes - Cardiovascular Exam Cardiovascular Exam: RRR. absent: Diastolic murmur, Gallop, Rubs, Systolic Murmur - GI/Abdominal Exam GI & Abdominal Exam: Normal Bowel Sounds, Soft. absent: Distended, Guarding, Rebound, Rigid, Tenderness - Extremities Exam Extremities exam: normal inspection - Back Exam Back exam: NORMAL INSPECTION - Neurological Exam Neurological exam: Abnormal Gait (unsteady, but improved from yesterday), Alert , CN II-XII Intact, Oriented x3 - Psychiatric Exam Psychiatric exam: Normal Affect, Normal Mood - Skin Skin Exam: Dry, Intact, Normal Color, Warm Discharge Plan - Follow Up Plan Condition: FAIR Disposition: AGAINST MEDICAL ADVICE Instructions: Alcohol Intoxication (DC), Alcohol Intoxication (GEN), Abuse of Alcohol (DC), Abuse of Alcohol (GEN), Alcohol Withdrawal (DC), Alcohol Withdrawal (GEN) Additional Instructions: 1. Follow up with PMD within 1 wekk 2. Cease alcohol consumption 3. Follow up with out-patient rehab for alcohol abuse 4. Return to ED, if condition worsens, withdrawing from alcohol Referrals: PCP,NO [Primary Care Provider] - <Lokesh Olivier - Last Filed: 06/24/17 17:49> Provider - Provider Date of Admission: 06/21/17 03:17 Attending physician: Lokesh Olivier MD Primary care physician: NO PRIMARY CARE PROVIDER Hospital Course - Lab Results Lab Results: Most Recent Lab Values WBC 4.4 10^3/ul (4.5-11.0) L 06/24/17 07:30 RBC 4.83 10^6/uL (3.5-6.1) 06/24/17 07:30 Hgb 14.1 g/dL (14.0-18.0) 06/24/17 07:30 Hct 41.2 % (42.0-52.0) L 06/24/17 07:30 MCV 85.3 fl (80.0-105.0) 06/24/17 07:30 MCH 29.2 pg (25.0-35.0) 06/24/17 07:30 MCHC 34.2 g/dl (31.0-37.0) 06/24/17 07:30 RDW 13.1 % (11.5-14.5) 06/24/17 07:30 Plt Count 85 10^3/uL (120.0-450.0) L 06/24/17 07:30 MPV 10.4 fl (7.0-11.0) 06/24/17 07:30 Gran % 64.0 % (50.0-68.0) 06/22/17 05:30 Lymph % (Auto) 28.1 % (22.0-35.0) 06/22/17 05:30 Bertie % (Auto) 7.1 % (1.0-6.0) H 06/22/17 05:30 Eos % (Auto) 0.6 % (1.5-5.0) L 06/22/17 05:30 Baso % (Auto) 0.2 % (0.0-3.0) 06/22/17 05:30 Gran # 3.16 (1.4-6.5) 06/22/17 05:30 Lymph # 1.4 (1.2-3.4) 06/22/17 05:30 Bertie # 0.4 (0.1-0.6) 06/22/17 05:30 Eos # 0.0 (0.0-0.7) 06/22/17 05:30 Baso # 0.01 K/mm3 (0.0-2.0) 06/22/17 05:30 Sodium 133 mmol/L (132-148) 06/24/17 07:30 Potassium 4.0 mmol/L (3.6-5.0) 06/24/17 07:30 Chloride 96 mmol/L (98-107) L 06/24/17 07:30 Carbon Dioxide 27 mmol/L (21-33) 06/24/17 07:30 Anion Gap 14 (10-20) 06/24/17 07:30 BUN 16 mg/dL (7-21) 06/24/17 07:30 Creatinine 0.7 mg/dL (0.5-1.4) 06/24/17 07:30 Est GFR ( Amer) > 60 06/24/17 07:30 Est GFR (Non-Af Amer) > 60 06/24/17 07:30 POC Glucose (mg/dL) 143 mg/dL (65-110) H 06/21/17 03:24 Random Glucose 105 mg/dL (70-110) 06/24/17 07:30 Calcium 9.4 mg/dL (8.4-10.5) 06/24/17 07:30 Phosphorus 3.3 mg/dL (2.5-4.5) 06/22/17 05:30 Magnesium 2.2 mg/dL (1.7-2.2) 06/22/17 05:30 Total Bilirubin 0.7 mg/dL (0.2-1.3) 06/24/17 07:30 AST 217 U/L (15-59) H 06/24/17 07:30 ALT 371 U/L (7-56) H 06/24/17 07:30 Alkaline Phosphatase 53 U/L (38-133) 06/24/17 07:30 Total Protein 6.7 g/dL (5.8-8.3) 06/24/17 07:30 Albumin 4.0 g/dL (3.0-4.8) 06/24/17 07:30 Globulin 2.7 gm/dL 06/24/17 07:30 Albumin/Globulin Ratio 1.5 (1.1-1.8) 06/24/17 07:30 Salicylates < 1 mg/dL (2.0-20.0) L 06/20/17 10:00 Acetaminophen < 10.0 ug/ml (10.0-20.0) L 06/20/17 10:00 Alcohol, Quantitative 527 mg/dL (0-10) H* 06/20/17 10:00 Hepatitis A IgM Ab Negative (NEGATIVE) 06/22/17 05:30 Hep Bs Antigen Negative (NEGATIVE) 06/22/17 05:30 Hep B Core IgM Ab Negative (NEGATIVE) 06/22/17 05:30 Hepatitis C Antibody Negative (NEGATIVE) 06/22/17 05:30 Attending/Attestation - Attestation I have personally seen and examined this patient.: Yes I have fully participated in the care of the patient.: Yes I have reviewed all pertinent clinical information, including history, physical exam and plan: Yes Notes (Text): 06/24/17 17:47 47 year old male with past medical history of alcohol abuse who presented with alcohol intoxication. He was started on multivitamin, folic acid and thiamine. He was on ativan for withdrawal symptoms which were improving. He had elevated LFTs secondary to ETOH abuse which were also improving. This morning his gait was still unsteady but improving. He did not wish for official PT evaluation and signed out AMA. Counselled on alcohol abstinence. Lokesh Olivier MD Hospitalist.
== END 2017-06-24 18:01 | disposition left against medical advice (07) | DRG 749 ==
LOC: ED 08:51 → EDBD 08:51 → MERGE 08:51 → EROBSV 09:10 → OBSVTOIN 06-21 03:17 → ERH 06-21 03:28 → 2RNO 06-21 05:24
PROVIDERS: ADMIT Hospitalist; ATTEND Internal Medicine
DX: F10.239 Alcohol dependence with withdrawal, unspecified (principal); D69.6 Thrombocytopenia, unspecified; F10.229 Alcohol dependence with intoxication, unspecified; Y90.8 Blood alcohol level of 240 mg/100 ml or more; R00.0 Tachycardia, unspecified; S80.212A Abrasion, left knee, initial encounter; E83.51 Hypocalcemia